=== PATIENT | male | born 1990 | race Hispanic/Latino ===

== ENCOUNTER → 2019-03-14 | Outpatient (CLI) | payer OTHER ==
[~2019-03-14] MED LIST: E-Z-GAS II EFFERVESCENT PACKET (SODIUM BICARB./CITRIC ACID/SIMETHICONE) As Ordered ONE; E-Z-HD 98% w/w 340GM SUSP BTL As Ordered ONE; E-Z-PAQUE 96% w/w SUSP 176GM BTL As Ordered ONE
--- NOTE | 2019-03-14 16:42 | REP ---
Esophagram The procedure was performed under the direct supervision of Dr. Álvarez. The images were reviewed with Dr. Álvarez. 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 The superior mediastinal structures are midline. The heart size is within normal limits. The lungs are clear. Liquid barium and gas producing granules were given in the erect position as well as liquid barium in the prone oblique positions in order to perform a double contrast esophagram examination. The oral and pharyngeal stages of deglutition are unremarkable. Esophageal transport is prompt and efficient and there is no esophagitis, stricture, mucosal ring or hiatal hernia. Gastroesophageal reflux is not demonstrated on this examination. Impression: Double contrast esophagram examination within normal limits. 0.4 minutes of fluoro time was utilized for this procedure. Electronically Signed by LESLEY Fu 03/14/2019 02:21 P Electronically Signed by Poncho Álvarez MD 03/14/2019 04:33 P
== END ==
LOC: M RAD 07:32
PROVIDERS: ATTEND Physician Assistant
DX: R10.12 Left upper quadrant pain (principal)

== ENCOUNTER 2019-08-01 08:47 | Day surgery (SDC) | payer OTHER ==
[~2019-08-01] VITALS: Ht 175.3 cm; Wt 98.4 kg
[~2019-08-01 08:47] MED LIST changes: -E-Z-GAS II EFFERVESCENT PACKET (SODIUM BICARB./CITRIC ACID/SIMETHICONE) As Ordered ONE; -E-Z-HD 98% w/w 340GM SUSP BTL As Ordered ONE; -E-Z-PAQUE 96% w/w SUSP 176GM BTL As Ordered ONE; +NS 1,000 ML IV ONE
[2019-08-01] MEDS ORDERED: propofoL 200 MG/20 ML VIAL As Ordered ONE (09:35)
[2019-08-01] MEDS ORDERED: LIDOCAINE 2% INJ 100 MG/5 ML SDV (FOR ANES.) As Ordered ONE (09:36)
[2019-08-01] MEDS ORDERED: fentaNYL 100 MCG/2 ML INJECTION (J3010) As Ordered ONE (09:40)
--- NOTE | 2019-08-01 10:31 | ROOR ---
Patient Name: Dequan Jones Procedure Date: 08/01/2019 10:07 AM Date of : 1990 Age: 28 Room: [facility] Gender: Male Note Status: Finalized Procedure: Upper Endoscopy + Biopsies Indications: Abdominal pain in the left upper quadrant Providers: Immanuel Gutierrez MD Referring MD: Maria Victoria Condon Requesting Provider: Medicines: Monitored Anesthesia Care Complications: No immediate complications. Procedure: Pre-Anesthesia Assessment: - The heart rate, respiratory rate, oxygen saturations, blood pressure, adequacy of pulmonary ventilation, and response to care were monitored throughout the procedure. The Endoscope was introduced through the mouth, and advanced to the second part of duodenum. The upper GI endoscopy was accomplished without difficulty. The patient tolerated the procedure well. Findings: The Z-line was irregular and was found 40 cm from the incisors. Multiple biopsies were obtained with cold forceps for evaluation to rule out Walker's Esophagus randomly at the gastroesophageal junction. No other significant abnormalities were identified in a careful examination of the stomach. Biopsies were taken with a cold forceps in the gastric antrum for Helicobacter pylori testing. The exam of the duodenum was otherwise normal. Impression: - Z-line irregular, 40 cm from the incisors. - Multiple biopsies were obtained at the gastroesophageal junction. - Biopsies were taken with a cold forceps for Helicobacter pylori testing. - The examination was otherwise normal. Recommendation: - Patient has a contact number available for emergencies. The signs and symptoms of potential delayed complications were discussed with the patient. Return to normal activities tomorrow. Written discharge instructions were provided to the patient. - High fiber diet. - Discharge patient to home. - Continue present medications. - Await pathology results. - Telephone GI clinic for pathology results in 1 week. - Return to referring physician. - The findings and recommendations were discussed with the patient's family. Immanuel Gutierrez MD Immanuel Gutierrez MD 08/01/2019 10:30:47 AM Electronically signed by Immanuel Gutierrez MD Number of Addenda: 0 Note Initiated On: 08/01/2019 10:07 AM Estimated Blood Loss: Estimated blood loss: none.
[2019-08-01 11:19] VITALS: BP 129/92
== END 2019-08-01 11:15 | disposition home or self-care (01) ==
LOC: M OPP 08:47
PROVIDERS: ATTEND Internal Medicine Gastroenterology
DX: K22.8 Other specified diseases of esophagus (principal); R10.12 Left upper quadrant pain
CPT/HCPCS: 43239; 88305; J3010

== ENCOUNTER 2023-05-05 07:56 | Emergency (ER) | payer OTHER ==
[~2023-05-05] VITALS: Ht 172.7 cm; Wt 111.6 kg
[2023-05-05] MEDS ORDERED: VENTAER INH (10:44)
[2023-05-05] MEDS ORDERED: BENZ200C70 PO (10:44)
[2023-05-05] MEDS ORDERED: MUCI600T31 PO (10:44)
[2023-05-05 10:50] VITALS: BP 139/96; TEMP 97.6; O2SAT 98
== END 2023-05-05 10:55 | disposition home or self-care (01) ==
LOC: M ED 07:56
DX: J20.5 Acute bronchitis due to respiratory syncytial virus (principal)

== ENCOUNTER → 2023-10-28 | Outpatient (REF) ==
[~2023-10-28] MED LIST changes: +BENZ200C70 PO; +MUCI600T31 PO; -NS 1,000 ML IV ONE; +VENTAER INH
== END ==
LOC: M PLAIMG 15:05
PROVIDERS: ATTEND Nurse Practitioner Family
DX: M54.50 Low back pain, unspecified (principal); M25.561 Pain in right knee

== ENCOUNTER 2023-12-10 10:23 | Emergency (ER) | payer OTHER ==
[~2023-12-10] VITALS: Ht 172.7 cm; Wt 115.5 kg
[2023-12-10] MEDS ORDERED: topiramate PO (10:37)
[2023-12-10] MEDS ORDERED: fish oil PO (10:39)
[2023-12-10 13:54] LABS: ALBUMIN 4.2 G/DL (3.2-5.2); ALKALINE PHOSPHATASE 49 U/L (46-116); ALT/SGPT 62 U/L (7.0-40); AST/SGOT 35 U/L (<34); BILIRUBIN,TOTAL 0.9 MG/DL (0.3-1.2); BLOOD UREA NITROGEN 17 MG/DL (9-23); CALCIUM LEVEL 9.8 MG/DL (8.5-10.1); CARBON DIOXIDE LEVEL 27 MMOL/L (20-31); CHLORIDE LEVEL 105 MMOL/L (98-107); GLOMERULAR FILTRATION RATE > 60.0 (>60); GLUCOSE, FASTING 90 MG/DL (60-100); POTASSIUM SERUM 4.3 MMOL/L (3.5-5.1); SODIUM LEVEL 138 MMOL/L (136-145); TOTAL PROTEIN 7.4 G/DL (5.7-8.2)
[2023-12-10 13:56] LABS: FREE T4 1.08 NG/DL (0.89-1.76); THYROID STIMULATING HORMONE 1.908 uIU/ML (0.55-4.78)
[2023-12-10 14:13] LABS: HEMATOCRIT 48.7 % (42.0-52.0); MEAN CORPUSCULAR HEMOGLOBIN 28.4 pg (27.0-33.0); MEAN CORPUSCULAR HGB CONC 32.9 g/dl (32.0-36.5); MEAN CORPUSCULAR VOLUME 86.3 fl (80.0-96.0); PLATELET COUNT, AUTOMATED 260 10^3/uL (150-450); RED BLOOD COUNT 5.64 10^6/uL (4.30-6.10); WHITE BLOOD COUNT 5.1 10^3/uL (4.0-10.0)
[2023-12-10 14:38] LABS: HEMOGLOBIN A1c 5.5 % (4.0-6.0)
[2023-12-10 15:16] VITALS: BP 125/80; TEMP 98.8; O2SAT 98
== END 2023-12-10 15:20 | disposition home or self-care (01) ==
LOC: M ED 10:23
DX: M54.42 Lumbago with sciatica, left side (principal); R20.2 Paresthesia of skin; F10.10 Alcohol abuse, uncomplicated; Z87.820 Personal history of traumatic brain injury; Z79.899 Other long term (current) drug therapy